=== PATIENT | male | born 1995 | race Caucasian/White ===

== ENCOUNTER 2019-06-28 08:19 | Observation (INO) | payer OTHER ==
[~2019-06-28] VITALS: Ht 185.4 cm; Wt 85.2 kg
[~2019-06-28 08:19] MED LIST: BUPIVACAINE/PF 0.5% ONE; EPINEPHRINE 1 MG/ML, 1ML ONE
[2019-06-28] MEDS ORDERED: NONE PER PATIENT (08:50)
[2019-06-28] MEDS ORDERED: LACTATED RINGERS 1,000 ML IV SCH ×2 (08:50→12:00)
[2019-06-28 09:04] VITALS: BP 118/79
[2019-06-28] MEDS ORDERED: MIDAZOLAM 1 MG/ML, 2ML ONE ×2 (09:11→09:58)
[2019-06-28] MEDS ORDERED: FENTANYL PF 250 MCG/5ML ONE ×2 (09:11→09:58)
[2019-06-28] MEDS ORDERED: DEXAMETHASONE 4 MG/ML, 1ML ONE (09:58)
[2019-06-28] MEDS ORDERED: ONDANSETRON 2MG/ML, 2ML ONE (09:58)
[2019-06-28] MEDS ORDERED: PROPOFOL 10 MG/ML, 20ML ONE (09:58)
[2019-06-28] MEDS ORDERED: CEFAZOLIN 1,000 MG ONE (09:58)
[2019-06-28] MEDS ORDERED: SUCCINYLCHOLINE 20 MG/ML, 10ML ONE (09:58)
[2019-06-28] MEDS ORDERED: ROCURONIUM 10 MG/ML,10ML ONE (09:58)
[2019-06-28] MEDS ORDERED: LABETALOL 5MG/ML, 20ML IV PRN (10:30)
[2019-06-28] MEDS ORDERED: FENTANYL PF 100 MCG/2ML IV PRN (10:30)
[2019-06-28] MEDS ORDERED: DIAZEPAM 5 MG/ML, 2ML IV PRN ×2 (10:30)
[2019-06-28] MEDS ORDERED: MEPERIDINE/PF 25MG/0.5ML IVPush PRN (10:30)
[2019-06-28] MEDS ORDERED: hydrALAzine 20 MG/ML, 1ML IV PRN (10:30)
[2019-06-28] MEDS ORDERED: PROMETHAZINE 25 MG/ML, 1ML IV PRN (10:30)
[2019-06-28] MEDS ORDERED: ALBUTEROL SULFATE 2.5 MG/3 ML NPPB PRN (10:30)
[2019-06-28] MEDS ORDERED: ONDANSETRON 2MG/ML, 2ML IVPush PRN ×2 (10:30→11:00)
[2019-06-28] MEDS ORDERED: OXYcodone 5 MG/5 ML ORAL.SOL UDC PO PRN (10:30)
[2019-06-28] MEDS ORDERED: KETOROLAC 30 MG/1 ML IV PRN (10:30)
[2019-06-28] MEDS ORDERED: METOCLOPRAMIDE 5 MG/ML, 2ML IV PRN (10:30)
[2019-06-28] MEDS ORDERED: HYDROmorphone 1 MG/ML, 1ML INJ IV PRN (10:30)
[2019-06-28] MEDS ORDERED: morphine SULFATE 10 MG/ML, 1ML IVPush PRN (11:00)
[2019-06-28] MEDS ORDERED: HYDROcodone/APAP 5/325 TABLET PO PRN (11:00)
== END 2019-06-28 12:45 | disposition home or self-care (01) ==
LOC: OUT 08:19 → ORIP 10:44
PROVIDERS: ADMIT Surgery Vascular Surgery; ATTEND Thoracic Surgery (Cardiothoracic Vascular Surgery)
DX: K40.90 Unilateral inguinal hernia, without obstruction or gangrene, not specified as recurrent (principal); Z79.899 Other long term (current) drug therapy
CPT/HCPCS: 49650; C1781; G0378; J0171; J0330; J0690; J1100; J2250; J2405; J2704; J3010; J7120; S0020